=== PATIENT | male | born 1985 | race Two or more races ===

== ENCOUNTER 2017-01-21 16:46 | Emergency (ER) | payer SELFPAY ==
[~2017-01-21] VITALS: Ht 188 cm; Wt 86.2 kg
[~2017-01-21 16:46] MED LIST: NKM
[2017-01-21 17:39] VITALS: BP 130/70
--- NOTE | 2017-01-21 21:21 | Emergency Room Report ---
History of Present Illness General Chief Complaint: Lower Extremity Injury Source: EMS Present Illness HPI The patient is a 31-year-old male presenting with right toe pain which began yesterday. The patient was seen at [facility] and had x-rays done which were unremarkable. Patient was placed in a walking boot and given a prescription for Motrin. Pt states pain has continued. The patient denies any known cause of the pain. It is now described as a 9/10 throbbing sensation it does not radiate. Pain worse with walking. Pt denies other sx such as f, chills, rash Allergies: Coded Allergies: No Known Allergies (Unverified , 01/21/17) Patient History Past Medical History: see triage record Pertinent Family History: none Reviewed Nursing Documentation: PMH: Agreed, PSxH: Agreed Nursing Documentation-PMH Past Medical History: No Stated History Review of Systems All Other Systems: negative except mentioned in HPI Physical Exam Vital Signs Date Time Temp Pulse Resp B/P Pulse Ox O2 Delivery O2 Flow Rate FiO2 01/21/17 16:39 80 18 136/82 97 Room Air Sp02 EP Interpretation: reviewed, normal General Appearance: no apparent distress, alert, GCS 15, non-toxic Head: normocephalic, atraumatic Eyes: bilateral eye PERRL, bilateral eye normal inspection Musculoskeletal: normal range of motion, tender - TTP over distal R 3rd and 4th toes Neurologic: alert, oriented x3, responsive, motor strength/tone normal, sensory intact, speech normal Skin: normal color, no rash, warm/dry, well hydrated Lymphatic: no adenopathy Medical Decision Making PA Attestation Dr. Azar is my supervising physician. Patient management was discussed with my supervising physician Diagnostic Impression: Primary Impression: Toe pain, right ER Course The patient is a 31-year-old male presenting with right toe pain Ddx considered include but not limited to sprain/strain, fracture, contusion Physical exam: Vitals within normal limits for an apparent distress Right foot: There is tenderness to palpation over distal third and fourth digits. No obvious deformity. No edema or ecchymosis. Full active range of motion.SILT No new imaging needed at this time as patient had foot xray one day prior. The patient is given Motrin and will be discharged home. Patient will continue to use walking boot. Pt given RICE instructions. ER precautions given Last Vital Signs Date Time Temp Pulse Resp B/P Pulse Ox O2 Delivery O2 Flow Rate FiO2 01/21/17 17:39 78 16 130/70 98 Room Air Status: improved Disposition: HOME, SELF-CARE Condition: Improved Referrals: NOT CHOSEN IPA/,REFERRING (PCP) Patient Instructions: CHETAN for Routine Care of Injuries Additional Instructions: I discussed my findings with the patient. All questions and concerns have been answered. Treatment and medication compliance have been addressed. I advised the patient that they need to follow up with PMD in 3-5 days. Return to ED if pain remains or worsens, numbness or tingling occurs, new rash is noticed, fever is noticed, or if needed for any reason. Patient verbalized understanding of discharge instructions. MONCHO DOYLE Jan 21, 2017 21:21
== END 2017-01-21 17:30 | disposition home or self-care (01) ==
LOC: EDBD 16:46 → EMR 17:30
DX: M79.674 Pain in right toe(s) (principal)
CPT/HCPCS: 99283